=== PATIENT | female | born 1990 | race Caucasian/White ===

== ENCOUNTER 2016-12-01 19:30 | Emergency (ER) | payer BC ==
--- NOTE | 2016-12-01 19:52 | ED ---
General Adult HPI - General Chief complaint: Eye Problems Stated complaint: Eye Problems Time Seen by Provider: 12/01/16 19:44 Source: patient, RN notes reviewed Mode of arrival: ambulatory Limitations: no limitations - History of Present Illness Initial comments: 26-year-old female presented for left eye irritation. Patient states that going on for the past 2 days. 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 She states that there is been some clear drainage from her left eye as well. It is itchy. She denies any significant eye pain. She denies any visual changes. She denies any fevers or chills. She denies a headache. - Related Data Previous Rx's Medication Instructions Recorded Amoxicillin 500 mg PO Q8H 10 Days 08/03/15 Allergies Allergy/AdvReac Type Severity Reaction Status Date / Time No Known Allergies Allergy Verified 12/01/16 19:38 Review of Systems ROS Statement: Those systems with pertinent positive or pertinent negative responses have been documented in the HPI. ROS Other: All systems not noted in ROS Statement are negative. Past Medical History Past Medical History: No Reported History History of Any Multi-Drug Resistant Organisms: None Reported Past Surgical History: No Surgical Hx Reported Past Psychological History: No Psychological Hx Reported Smoking Status: Never smoker Past Alcohol Use History: None Reported Past Drug Use History: None Reported General Exam - General Exam Comments Initial Comments: General: Awake and Alert. No acute distress. Does not appear acutely ill. Eyes: BRENNA, EOM intact. No nystagmus. No scleral icterus. Left eye with conjunctivitis with clear drainage. Right eye conjunctiva appears normal. HENT: Atraumatic, normocephalic. Mucous membranes moist. Trachea midline. Neck: The neck is supple, there is no tenderness or JVD. Cardiovascular: Regular rate and rhythm. Distal pulses intact. Respiratory: No wheezing. No respiratory distress. No tachypnea. Gastrointestinal: No distention. Obese. Musculoskeletal: No tenderness. Normal ROM. No gross deformity. No strength deficits. Neurological: A&Ox3. CN II-XII grossly intact, There are no obvious motor or sensory deficits. Coordination appears grossly intact. Speech is normal. Skin: Skin is warm and dry and no rashes or lesions are noted. Psychiatric: Cooperative, appropriate mood & affect, normal judgment. Limitations: no limitations Course Vital Signs 12/01/16 19:36 Temperature 98.2 F Pulse Rate 94 Respiratory 16 Rate Blood Pressure 140/61 O2 Sat by Pulse 97 Oximetry Medical Decision Making - Medical Decision Making 26-year-old female presented for left eye conjunctivitis. There does not appear to be any other concerning neurological symptoms at this time. Vision is intact. Patient is given dose of Polytrim in the ED and bottle to go home with. Discussed using these 2 drops in both eyes 4 times per day for the next 5 days. Discussed follow-up with PCP. Discussed concerning signs symptoms requiring return to ED. Patient is otherwise stable for discharge. Patient is agreeable with plan and discharge home. Disposition Clinical Impression: Left conjunctivitis Disposition: HOME SELF-CARE Condition: Stable Instructions: Conjunctivitis (ED) Additional Instructions: Please us eyedrops 2 drops in both eyes 4x per day for 5 days. Wash your hands and pillow cases frequently to help not spread the infection. Time of Disposition: 19:52
[2016-12-01] MEDS ORDERED: POLYMYXIN B-TRIMETHOPRIM (10,000-1) OPHTH DROPS 10 ML BTL BOTH EYES SCH (20:00)
[2016-12-01 20:11] VITALS: BP 129/71; PULSE 77; RESP 18; TEMP 97
== END 2016-12-01 20:10 | disposition home or self-care (01) ==
LOC: EC 19:30
DX: H10.9 Unspecified conjunctivitis (principal)
CPT/HCPCS: 99283

== ENCOUNTER 2022-06-08 14:01 | Emergency (ER) | payer BC, OTHER ==
[2022-06-08 16:12] LABS: Basophils % (A) 0 %; Eosinophils # (A) 0.1 k/uL (0-0.7); Eosinophils % (A) 1 %; HCT 41.9 % (34.0-46.0); Lymphocytes # (A) 2.6 k/uL (1.0-4.8); Lymphocytes % (A) 23 %; MCH 30.2 pg (25.0-35.0); MCHC 33.4 g/dL (31.0-37.0); MCV 90.4 fL (80.0-100.0); Mean Platelet Volume 7.1; Monocytes # (A) 0.4 k/uL (0-1.0); Monocytes % (A) 4 %; Neutrophils % (A) 71 %; Platelet Count 381 k/uL (150-450); RBC 4.63 m/uL (3.80-5.40); RDW 12.9 % (11.5-15.5); WBC 11.3 k/uL (3.8-10.6)
--- NOTE | 2022-06-08 16:16 | ED ---
Female Urogenital HPI - General Chief complaint: Vaginal Bleeding Stated complaint: Vaginal bleeding-10 weeks preg Time Seen by Provider: 06/08/22 15:19 Source: patient Mode of arrival: ambulatory Limitations: no limitations - History of Present Illness Initial comments: Patient is a 31-year-old female presents the emergency room after having vaginal bleeding earlier this morning and trace blood on toilet paper after going to the bathroom later in the afternoon. She denies any abdominal cramping or continued bleeding. This is her first and per her last menstrual cycle she should be approximately 10-11 weeks. She reports that she is diabetic and did stop taking her diabetic medications she was not sure if there were safe her but did start taking a gummy vitamin. This is her first ever she has never been before or had previous miscarriages. She does have 1 adopted daughter. She reports that she received a call today to establish with [facility] but has not seen anyone at that practice yet. She denies any other significant past medical history besides her diabetes. She does not monitor her blood sugars at home and is unsure of what her blood sugars could possibly be at this time. She denies any other complaints or concerns at this time. - Related Data Home Medications Medication Instructions Recorded Confirmed Ibuprofen [Motrin] 400 mg PO Q6HR PRN 12/01/16 12/01/16 Previous Rx's Medication Instructions Recorded Polymyxin B-Trimeth Sulf Ophth 2 drops BOTH EYES QID 5 Days ml 12/01/16 [Polytrim Opthalmic] Fluconazole [Diflucan] 150 mg PO ONCE 2 Days #2 tab 06/08/22 nitrofurantoin macrocrystaL 100 mg PO Q12HR 5 Days #10 cap 06/08/22 [Nitrofurantoin] Allergies Allergy/AdvReac Type Severity Reaction Status Date / Time No Known Allergies Allergy Verified 06/08/22 14:05 Review of Systems ROS Statement: Those systems with pertinent positive or pertinent negative responses have been documented in the HPI. ROS Other: All systems not noted in ROS Statement are negative. Past Medical History Past Medical History: Diabetes Mellitus History of Any Multi-Drug Resistant Organisms: None Reported Past Surgical History: No Surgical Hx Reported Past Psychological History: No Psychological Hx Reported Smoking Status: Never smoker Past Alcohol Use History: None Reported Past Drug Use History: None Reported General Exam Limitations: no limitations General appearance: alert, in no apparent distress Head exam: Present: atraumatic, normocephalic, normal inspection Eye exam: Present: normal appearance, PERRL, EOMI. Absent: scleral icterus, conjunctival injection, periorbital swelling ENT exam: Present: normal exam, mucous membranes moist Neck exam: Present: normal inspection. Absent: tenderness, meningismus, lymphadenopathy Respiratory exam: Present: normal lung sounds bilaterally. Absent: respiratory distress, wheezes, rales, rhonchi, stridor Cardiovascular Exam: Present: regular rate, normal rhythm, normal heart sounds. Absent: systolic murmur, diastolic murmur, rubs, gallop, clicks GI/Abdominal exam: Present: soft, normal bowel sounds. Absent: distended, tenderness, guarding, rebound, rigid Extremities exam: Present: normal inspection, full ROM, normal capillary refill. Absent: tenderness, pedal edema, joint swelling, calf tenderness Back exam: Present: normal inspection Neurological exam: Present: alert, oriented X3, CN II-XII intact Psychiatric exam: Present: normal affect, normal mood Skin exam: Present: warm, dry, intact, normal color. Absent: rash Course Vital Signs 06/08/22 14:03 Temperature 97.7 F Pulse Rate 91 Respiratory 20 Rate Blood Pressure 120/81 O2 Sat by Pulse 97 Oximetry Medical Decision Making - Medical Decision Making Patient 1 with trace amount of spotting with no cramping today. Will check CBC, BMP, urinalysis, serum hcg level, Rh factor and ultrasound less than 14 weeks. CBC with mild leukocytosis noted and positive urinalysis for bacteria and yeast. hcg level at 10,000; BMP stable. Rh +. ultrasound shows likely demise with no heart sounds and measurements of 8 weeks instead of expected tender 11 and no yolk sac. Will treat both urinary tract infection and yeast infection. Advised to keep upcoming appointment with [facility]. Discussed typical course of miscarriage and when to return to the emergency room including fever, chills, excessive excessive vaginal, purulent drainage or foul vaginal odor, abdominal pain. Case discussed with Dr. Vila - Lab Data Result diagrams: 06/08/22 15:50 06/08/22 15:50 Lab Results 06/08/22 06/08/22 06/08/22 Range/Units 15:50 15:50 15:50 WBC 11.3 H (3.8-10.6) k/uL RBC 4.63 (3.80-5.40) m/uL Hgb 14.0 (11.4-16.0) gm/dL Hct 41.9 (34.0-46.0) % MCV 90.4 (80.0-100.0) fL MCH 30.2 (25.0-35.0) pg MCHC 33.4 (31.0-37.0) g/dL RDW 12.9 (11.5-15.5) % Plt Count 381 (150-450) k/uL MPV 7.1 Neutrophils % 71 % Lymphocytes % 23 % Monocytes % 4 % Eosinophils % 1 % Basophils % 0 % Neutrophils # 8.0 H (1.3-7.7) k/uL Lymphocytes # 2.6 (1.0-4.8) k/uL Monocytes # 0.4 (0-1.0) k/uL Eosinophils # 0.1 (0-0.7) k/uL Basophils # 0.0 (0-0.2) k/uL Sodium 136 L (137-145) mmol/L Potassium 4.5 (3.5-5.1) mmol/L Chloride 101 (98-107) mmol/L Carbon Dioxide 24 (22-30) mmol/L Anion Gap 11 mmol/L BUN 12 (7-17) mg/dL Creatinine 0.44 L (0.52-1.04) mg/dL Est GFR (CKD-EPI)AfAm >90 (>60 ml/min/1.73 sqM) Est GFR (CKD-EPI)NonAf >90 (>60 ml/min/1.73 sqM) Glucose 165 H (74-99) mg/dL Calcium 9.4 (8.4-10.2) mg/dL HCG, Quant 58963.9 mIU/mL Urine Color Yellow Urine Appearance Cloudy H (Clear) Urine pH 5.0 (5.0-8.0) Ur Specific [place] 1.026 (1.001-1.035) Urine Protein 1+ H (Negative) Urine Glucose (UA) Trace H (Negative) Urine Ketones 1+ H (Negative) Urine Blood Small H (Negative) Urine Nitrite Negative (Negative) Urine Bilirubin Negative (Negative) Urine Urobilinogen <2.0 (<2.0) mg/dL Ur Leukocyte Esterase Large H (Negative) Urine RBC 36 H (0-5) /hpf Urine WBC 130 H (0-5) /hpf Ur Squamous Epith Cells 25 H (0-4) /hpf Urine Bacteria Moderate H (None) /hpf Urine Mucus Many H (None) /hpf Urine Yeast (Budding) Occasional H (None) /hpf Blood Type Blood Type Recheck Bld Type Recheck Status 06/08/22 Range/Units 15:50 WBC (3.8-10.6) k/uL RBC (3.80-5.40) m/uL Hgb (11.4-16.0) gm/dL Hct (34.0-46.0) % MCV (80.0-100.0) fL MCH (25.0-35.0) pg MCHC (31.0-37.0) g/dL RDW (11.5-15.5) % Plt Count (150-450) k/uL MPV Neutrophils % % Lymphocytes % % Monocytes % % Eosinophils % % Basophils % % Neutrophils # (1.3-7.7) k/uL Lymphocytes # (1.0-4.8) k/uL Monocytes # (0-1.0) k/uL Eosinophils # (0-0.7) k/uL Basophils # (0-0.2) k/uL Sodium (137-145) mmol/L Potassium (3.5-5.1) mmol/L Chloride (98-107) mmol/L Carbon Dioxide (22-30) mmol/L Anion Gap mmol/L BUN (7-17) mg/dL Creatinine (0.52-1.04) mg/dL Est GFR (CKD-EPI)AfAm (>60 ml/min/1.73 sqM) Est GFR (CKD-EPI)NonAf (>60 ml/min/1.73 sqM) Glucose (74-99) mg/dL Calcium (8.4-10.2) mg/dL HCG, Quant mIU/mL Urine Color Urine Appearance (Clear) Urine pH (5.0-8.0) Ur Specific [place] (1.001-1.035) Urine Protein (Negative) Urine Glucose (UA) (Negative) Urine Ketones (Negative) Urine Blood (Negative) Urine Nitrite (Negative) Urine Bilirubin (Negative) Urine Urobilinogen (<2.0) mg/dL Ur Leukocyte Esterase (Negative) Urine RBC (0-5) /hpf Urine WBC (0-5) /hpf Ur Squamous Epith Cells (0-4) /hpf Urine Bacteria (None) /hpf Urine Mucus (None) /hpf Urine Yeast (Budding) (None) /hpf Blood Type O Positive Blood Type Recheck No Previous Record Bld Type Recheck Status [facility] ONLY Disposition Clinical Impression: Incomplete , UTI (urinary tract infection) Disposition: HOME SELF-CARE Condition: Stable Instructions (If sedation given, give patient instructions): Miscarriage (ED) Additional Instructions: Please complete your antibiotic therapy for urinary tract infection. Please return to the hospital in 48 hours for repeat blood tests. Please follow-up with [facility] in regards to likely miscarriage. Please follow-up with [facility] [employer] [facility] in regards to treatment of slight amount of yeast found in urine. Prescription for Diflucan given please hold until cleared by just [facility] ENGINE[facility] to start. Please resume your metformin for your diabetes. Please follow-up with your primary care provider. If any excessive vaginal bleeding, purulent or foul vaginal discharge, abdominal pain, nausea vomiting fevers or chills please return to the emergency room. Please return to the Emergency Department if symptoms worsen or any other concerns. Prescriptions: Fluconazole [Diflucan] 150 mg PO ONCE 2 Days #2 tab nitrofurantoin macrocrystaL [Nitrofurantoin] 100 mg PO Q12HR 5 Days #10 cap Is patient prescribed a controlled substance at d/c from ED?: No Referrals: Michel Brennan DO [Primary Care Provider] - 1-2 days Melinda Bryant MD [STAFF PHYSICIAN] - 1-2 days Time of Disposition: 17:18
[2022-06-08 16:18] LABS: African American GFR (CKD) >90 (>60 ml/min/1.73 sqM); Anion Gap 11 mmol/L; Blood Urea Nitrogen 12 mg/dL (7-17); Calcium 9.4 mg/dL (8.4-10.2); Carbon Dioxide 24 mmol/L (22-30); Chloride 101 mmol/L (98-107); Glucose 165 mg/dL (74-99); Non-African American GFR(CKD) >90 (>60 ml/min/1.73 sqM); Potassium 4.5 mmol/L (3.5-5.1); Sodium 136 mmol/L (137-145)
--- NOTE | 2022-06-08 16:32 | US ---
EXAMINATION TYPE: Transabdominal DATE OF EXAM: 06/08/2022 4:12 PM COMPARISON: NONE CLINICAL HISTORY: pain. bleeding with . EXAM PERFORMED: Transabdominal (TA) EXAM MEASUREMENTS: GESTATIONAL AGE / DATING Physician Established: Not yet established Dates by LMP: 03/22/2022 (11 weeks/1 days) EDC: 12/27/2022 Dates by First Scan: No previous this is first scan ) Dates by Current Scan for: ( 8 weeks/5 days) demise MATERNAL ANATOMY Uterus: 11.0 x 6.5 x 7.9 cm Right Ovary: not visualized Left Ovary: 3.4 x 1.7 x 2.9 cm Post CDS / Adnexa: wnl Presence of free fluid: none GESTATION / SURVEY CRL: 2.1 cm (8 weeks/5 days) MSD: 3.4 cm (8 weeks/4 days) Yolk Sac (normal less than 6mm): not seen Date of LMP: 03/22/2022 Beta HcG (if available): not available demise, no heart tones detected. IMPRESSION: 1. No heart tones noted which should be present and an 8 week 5 day gestation based on the curyung n-rump length. Predicted gestational age based on last menstrual period would be 11 weeks 1 day gesta tion which is a discrepancy. Intrauterine demise likely present.
[2022-06-08 16:34] LABS: HCG,Quantitative Serum 10908.9 mIU/mL
[2022-06-08 16:39] LABS: Appearance,Urine Cloudy (Clear); Bacteria,Urine Moderate /hpf; Bilirubin,Urine Negative (Negative); Blood,Urine Small (Negative); Budding Yeast,Urine Occasional /hpf; Color,Urine Yellow; Glucose,Urine (UA) Trace (Negative); Ketones,Urine 1+ (Negative); Leukocyte Esterase,Urine Large (Negative); Mucus,Urine Many /hpf; Nitrite,Urine Negative (Negative); Protein,Urine 1+ (Negative); RBC,Urine 36 /hpf (0-5); Specific Gravity,Urine 1.026 (1.001-1.035); Squamous Epithelial Cell,Urine 25 /hpf (0-4); Urobilinogen,Urine <2.0 mg/dL (<2.0); WBC,Urine 130 /hpf (0-5)
[2022-06-08 17:34] VITALS: BP 114/73; PULSE 84; RESP 18; TEMP 98.7
== END 2022-06-08 17:34 | disposition home or self-care (01) ==
LOC: EC 14:01
DX: O03.4 Incomplete spontaneous abortion without complication (principal); E11.9 Type 2 diabetes mellitus without complications; N39.0 Urinary tract infection, site not specified; Z3A.11 11 weeks gestation of pregnancy
CPT/HCPCS: 36415; 76801; 80048; 81001; 84702; 85025; 86900; 86901; 87077; 87086; 87186

== ENCOUNTER → 2022-06-13 | Outpatient (CLI) | payer BC, OTHER ==
[2022-06-13 19:09] LABS: Basophils # (A) 0.03 X 10*3/uL (0.00-0.10); Basophils % (A) 0.3 %; Eosinophils # (A) 0.09 X 10*3/uL (0.04-0.35); Eosinophils % (A) 0.8 %; HCT 42.3 % (37.2-46.3); HGB 13.3 g/dL (12.0-15.0); Immature Grans, Automated 0.3 %; Lymphocytes # (A) 2.61 X 10*3/uL (0.90-5.00); Lymphocytes % (A) 22.6 %; MCH 28.4 pg (27.0-32.0); MCHC 31.4 g/dL (32.0-37.0); MCV 90.4 fL (80.0-97.0); Monocytes # (A) 0.65 X 10*3/uL (0.20-1.00); Monocytes % (A) 5.6 %; NRBC Per 100 WBC 0 /100 WBCS (0.0-0.0); Neutrophils # (A) 8.13 X 10*3/uL (1.80-7.70); Neutrophils % (A) 70.4 %; Platelet Count 398 X 10*3/uL (140-440); RBC 4.68 X 10*6/uL (4.10-5.20); RDW 12.5 % (11.5-14.5); WBC 11.54 X 10*3/uL (4.50-10.00)
== END | disposition home or self-care (01) ==
LOC: LABPAT 11:03
PROVIDERS: ATTEND Obstetrics & Gynecology
DX: Z01.812 Encounter for preprocedural laboratory examination (principal); O02.1 Missed abortion
CPT/HCPCS: 36415; 85025

== ENCOUNTER → 2022-10-10 | Outpatient (CLI) | payer BC, OTHER ==
[2022-10-10 14:26] LABS: Basophils # (A) 0.03 X 10*3/uL (0.00-0.10); Basophils % (A) 0.3 %; Eosinophils # (A) 0.07 X 10*3/uL (0.04-0.35); Eosinophils % (A) 0.7 %; HGB 13.4 g/dL (12.0-15.0); Immature Grans, Automated 0.4 %; Lymphocytes # (A) 2.91 X 10*3/uL (0.90-5.00); Lymphocytes % (A) 27.2 %; MCHC 31.9 g/dL (32.0-37.0); MCV 90.9 fL (80.0-97.0); Mean Platelet Volume 10.3 fL (9.5-12.2); Monocytes # (A) 0.78 X 10*3/uL (0.20-1.00); Monocytes % (A) 7.3 %; NRBC Per 100 WBC 0 /100 WBCS (0.0-0.0); Neutrophils # (A) 6.85 X 10*3/uL (1.80-7.70); Neutrophils % (A) 64.1 %; Platelet Count 394 X 10*3/uL (140-440); RBC 4.62 X 10*6/uL (4.10-5.20); RDW 12.4 % (11.5-14.5); WBC 10.68 X 10*3/uL (4.50-10.00)
== END | disposition home or self-care (01) ==
LOC: LABPAT 09:47
PROVIDERS: ATTEND Obstetrics & Gynecology
DX: Z01.812 Encounter for preprocedural laboratory examination (principal); O02.1 Missed abortion; Z3A.00 Weeks of gestation of pregnancy not specified
CPT/HCPCS: 85025; 86850; 86900; 86901

== ENCOUNTER 2022-10-12 13:28 | Day surgery (SDC) | payer BC, OTHER ==
[2022-10-10 14:28] VITALS: BMI 31.3
[~2022-10-12 13:28] MED LIST: Pre Op ABX Message 1 EACH MISC MISCELLANE ONE
[2022-10-12] MEDS ORDERED: DEXAMETHASONE SOD PHOSPHATE 4 MG/ML 1 ML VIAL IV ONE (13:38)
[2022-10-12] MEDS ORDERED: MIDAZOLAM 2 MG/2 ML VIAL IV PRN (13:38)
[2022-10-12] MEDS ORDERED: HYDROmorphone 0.5 MG/0.5 ML SYRINGE IVP PRN (13:38)
[2022-10-12] MEDS ORDERED: SCOPOLAMINE 1 MG/72 HR PATCH TRANSDERM ONE (13:38)
[2022-10-12] MEDS ORDERED: LACTATED RINGERS 1,000 ML IV SCH ×2 (13:38→15:15)
[2022-10-12] MEDS ORDERED: ONDANSETRON 4 MG/2 ML VIAL IVP ONE (13:38)
[2022-10-12 14:02] LABS: Glucose,Whole Blood 126 mg/dL (70-110)
[2022-10-12] MEDS ORDERED: MIDAZOLAM 2 MG/2 ML VIAL ONE (14:33)
[2022-10-12] MEDS ORDERED: fentaNYL (PF) 50 MCG/ML 2 ML AMP ONE (14:33)
[2022-10-12] MEDS ORDERED: LIDOCAINE 2% INJ 20 MG/ML (2 ML VIAL) ONE (14:33)
[2022-10-12] MEDS ORDERED: PROPOFOL 10 MG/ML 20 ML VIAL IV ONE (14:33)
[2022-10-12] MEDS ORDERED: SUCCINYLCHOLINE CHLORIDE 200 MG/10 ML VIAL IV ONE (14:33)
[2022-10-12] MEDS ORDERED: HYDROmorphone (PF) 1 MG/ML ONE (14:33)
[2022-10-12] MEDS ORDERED: Acetaminophen-Codeine 300-30mg TAB PO PRN ×2 (15:03)
[2022-10-12] MEDS ORDERED: ONDANSETRON 4 MG/2 ML VIAL IVP PRN (15:03)
[2022-10-12] MEDS ORDERED: diphenhydrAMINE 50 MG/ML 1 ML VIAL IVP PRN (15:03)
[2022-10-12] MEDS ORDERED: SIMETHICONE 80 MG CHEWABLE PO PRN (15:03)
[2022-10-12] MEDS ORDERED: IBUPROFEN 600 MG TAB PO PRN (15:03)
[2022-10-12] MEDS ORDERED: KETOROLAC 15 MG/ML 1 ML VIAL IVP PRN (15:03)
[2022-10-12] MEDS ORDERED: METOCLOPRAMIDE 5 MG/ML 2 ML VIAL IVP PRN (15:03)
--- NOTE | 2022-10-12 15:08 | P.OP ---
Date of Procedure: 10/12/22 Preoperative Diagnosis: #1. 6+ week missed Postoperative Diagnosis: Same Procedure(s) Performed: #1. dilation and aspiration curettage Anesthesia: DARIA Surgeon: Pedro Whelan Estimated Blood Loss (ml): 100 IV fluids (ml): 400 Urine output (ml): 10 Pathology: other (Uterine contents) Condition: stable Disposition: PACU Operative Findings: Preoperative pelvic examination demonstrated a roughly 6-7 week slightly antever domo mobile normal shaped uterus with normal adnexa bilaterally. Intraoperatively, the uterus sounded to 10 cm. A #8 curved aspiration curet was utilized and tissue seen passing through the tubing on the first pass. Using a sharp curette the typical gritty texture was encountered and no further tissue produced. Description of Procedure: The patient was prepped and draped in usual fashion after general endotracheal anesthesia was administered by the anesthesiologist. The bladder was draining approximately 10 mL of clear leticia urine. A weighted speculum was placed and the anterior lip of the cervix was grasped with a single-tooth tenaculum. Uterus sounded to 10 cm as noted above. Serial dilation was carried out to admit a #8 curved aspiration curet which was placed to the fundus and suction applied. After adequate suction had been built, thorough and circumferential aspiration curettage was carried out from the fundus of the uterus to the cervix with tissue clearly seen passing through the tubing on the first pass. The second pass failed to deliver any obvious tissue and the suction curet was set aside in favor of a medium sharp curette. Thorough and circumferential sharp curettage was carried out from the fundus to the cervix with no tissue noted in the typical gritty texture was encountered throughout. One last pass was made with the aspiration curet which failed to produce any further tissue. All instrumentation was then removed. There was no significant ongoing bleeding from either the cervix or the tenaculum site. Estimated blood loss for the case is approximately 100 mL. All sponge, instrument, needle counts were correct. The patient tolerated the procedure well and proceeded to the recovery room in stable condition.
[2022-10-12 15:18] VITALS: TEMP 97
[2022-10-12 15:55] VITALS: RESP 15
[2022-10-12 16:08] VITALS: BP 107/73; PULSE 74
== END 2022-10-12 16:22 | disposition home or self-care (01) ==
LOC: OR 13:28
PROVIDERS: ATTEND Obstetrics & Gynecology
DX: O02.1 Missed abortion (principal); E11.9 Type 2 diabetes mellitus without complications; Z79.84 Long term (current) use of oral hypoglycemic drugs; Z79.82 Long term (current) use of aspirin; Z79.899 Other long term (current) drug therapy
CPT/HCPCS: 88305; 59820; J2250; J0330; J1100; J2405; J3010; J1170; J2704; J2001

== ENCOUNTER 2024-07-12 11:55 | Emergency (ER) | payer OTHER ==
[2024-07-12 12:02] LABS: Glucose,Whole Blood 309 mg/dL (70-110)
--- NOTE | 2024-07-12 12:28 | ED ---
Dizziness HPI - General Source: patient, RN notes reviewed Mode of arrival: ambulatory Limitations: no limitations - History of Present Illness MD Complaint: dizziness <Susan Jauregui - Last Filed: 07/12/24 12:26> <Ulises Oleary - Last Filed: 07/13/24 07:14> - General Chief Complaint: Dizziness Stated Complaint: Dizziness,Headache Time Seen by Provider: 07/12/24 12:20 - History of Present Illness Initial Comments: Quick Note: This is a 34-year-old female who presents to the emergency department for headaches and dizziness. States that she woke up this way yesterday and this morning. Blood sugar noted to be elevated in triage. Patient has a history of type 2 diabetes. Does not take insulin. Does not check her sugar at home. Denies a history of DKA. Denies any chest pain or shortness of breath. (Susan Jauregui) Agree with above. Patient does admit to some dietary indiscretions related to diabetes diet. (Ulises Oleary) - Related Data Home Medications Medication Instructions Recorded Confirmed metFORMIN HCL 1,000 mg PO BID 06/14/22 10/10/22 Acetaminophen Tab [Tylenol Tab] 500 mg PO Q6H PRN 10/10/22 10/10/22 Empagliflozin [Jardiance] 10 mg PO DAILY 10/10/22 10/10/22 Previous Rx's Medication Instructions Recorded Benzocaine/Menthol [Cepacol Sore 1 each MM Q4H PRN #24 lozenge 12/06/22 Throat Lozenge] Ibuprofen [Motrin] 800 mg PO Q8HR PRN #30 tab 12/06/22 Allergies Allergy/AdvReac Type Severity Reaction Status Date / Time No Known Allergies Allergy Verified 07/12/24 12:01 Review of Systems ROS Other: All systems not noted in ROS Statement are negative. <Susan Jauregui - Last Filed: 07/12/24 12:26> ROS Other: All systems not noted in ROS Statement are negative. Constitutional: Denies: fever, chills, weakness Respiratory: Denies: cough, dyspnea Cardiovascular: Denies: chest pain, palpitations, edema Gastrointestinal: Denies: abdominal pain, vomiting, diarrhea Genitourinary: Denies: dysuria, hematuria Musculoskeletal: Denies: back pain Skin: Denies: rash Neurological: Denies: headache, weakness, numbness <AnirudhUlises - Last Filed: 07/13/24 07:14> ROS Statement: Those systems with pertinent positive or pertinent negative responses have been documented in the HPI. Past Medical History Past Medical History: Diabetes Mellitus History of Any Multi-Drug Resistant Organisms: None Reported Past Surgical History: No Surgical Hx Reported Additional Past Surgical History / Comment(s): D&C Past Anesthesia/Blood Transfusion Reactions: No Reported Reaction Past Psychological History: No Psychological Hx Reported Smoking Status: Never smoker Past Alcohol Use History: None Reported Past Drug Use History: None Reported - Past Family History Mother Family Medical History: No Reported History <Susan Jauregui - Last Filed: 07/12/24 12:26> General Exam Limitations: no limitations <Susan Jauregui - Last Filed: 07/12/24 12:26> General appearance: alert, in no apparent distress Head exam: Present: atraumatic, normocephalic Eye exam: Present: normal appearance. Absent: scleral icterus, conjunctival injection Neck exam: Present: normal inspection Respiratory exam: Present: normal lung sounds bilaterally. Absent: respiratory distress, wheezes, rales, rhonchi, stridor, accessory muscle use Cardiovascular Exam: Present: regular rate, normal rhythm, normal heart sounds. Absent: systolic murmur, diastolic murmur, rubs, gallop GI/Abdominal exam: Present: soft. Absent: distended, tenderness, guarding, rebound, rigid, mass Extremities exam: Present: normal inspection, normal capillary refill. Absent: pedal edema, calf tenderness Back exam: Present: normal inspection. Absent: CVA tenderness (R), CVA tenderness (L) Neurological exam: Present: alert Skin exam: Present: warm, dry, intact, normal color. Absent: rash <Ulises Oleary - Last Filed: 07/13/24 07:14> - General Exam Comments Initial Comments: Visual Physical Exam Vital signs reviewed General: Well-appearing, nontoxic, no acute distress. Head: Normocephalic, atraumatic Eyes: PERRLA, EOMI ENT: Airway patent Chest: Nonlabored breathing Skin: No visual rash, normal skin tone Neuro: Alert and oriented 3 Musculoskeletal: No gross abnormalities (Susan Jauregui) Course Vital Signs 07/12/24 07/12/24 07/12/24 11:58 17:03 17:25 Temperature 97.9 F 98.2 F Pulse Rate 96 87 85 Respiratory 16 18 16 Rate Blood Pressure 114/65 115/74 117/74 O2 Sat by Pulse 96 100 100 Oximetry EKG Findings - EKG Results: EKG: interpreted by ERMD, sinus rhythm (Rate 82 bpm), normal axis, normal QRS, normal ST/T - PR, Pacemaker, Normal: Normal tracing: normal tracing <Ulises Oleary - Last Filed: 07/13/24 07:14> Medical Decision Making <Susan Jauregui - Last Filed: 07/12/24 12:26> - Lab Data Result diagrams: 07/12/24 12:25 07/12/24 12:25 <Ulises Oleary - Last Filed: 07/13/24 07:14> - Medical Decision Making I performed the QuickNote portion of this chart. Signed Susan Jauregui PA-C. (Susan Jauregui) Was pt. sent in by a medical professional or institution ([facility], [employer], urgent care, hospital, or longterm...) When possible be specific @ -[No] Did you speak to anyone other than the patient for history (EMS, parent, family, police, friend...)? What history was obtained from this source @ -[No] Did you review nursing and triage notes (agree or disagree)? Why? @ -[I reviewed and agree with nursing and triage notes] Were old charts reviewed (outside hosp., previous admission, EMS record, old EKG, old radiological studies, urgent care reports/EKG's, longterm records)? Report findings @ -[No old charts were reviewed] Differential Diagnosis (chest pain, altered mental status, abdominal pain women, abdominal pain men, vaginal bleeding, weakness, fever, dyspnea, syncope, [place], dizziness, GI bleed, back pain, seizure, CVA, palpatations, mental health, musculoskeletal)? @ -[Differential Dizziness: Benign paroxysmal positional Vertigo, Meniere's disease, otitis media, acoustic neuroma, vertebrobasilar insufficiency, cerebellar stroke, encephalitis, hypovolemic, arrhythmia, coronary artery syndrome, anemia, this is not meant to be an all-inclusive list EKG interpreted by me (3pts min.). @ -[As above] X-rays interpreted by me (1pt min.). @ -[None done] CT interpreted by me (1pt min.). @ -[None done] U/S interpreted by me (1pt. min.). @ -[None done] What testing was considered but not performed or refused? (CT, X-rays, U/S, labs)? Why? @ -[None] What meds were considered but not given or refused? Why? @ -[None] Did you discuss the management of the patient with other professionals (professionals i.e. DrGaston, PA, HYDRAMATIC MECHANIC, lab, RT, psych nurse, home health care social worker, reduction furnace operator, teacher, electronic warfare officer, counter caser)? Give summary @ -[No] Was smoking cessation discussed for >3mins.? @ -[No] Was critical care preformed (if so, how long)? @ -[No] Were there social determinants of health that impacted care today? How? (Homelessness, low income, unemployed, alcoholism, drug addiction, transportation, low edu. Level, literacy, decrease access to med. care, group home, rehab)? @ -[No] Was there de-escalation of care discussed even if they declined (Discuss DNR or withdrawal of care, Hospice)? DNR status @ -[No] What co-morbidities impacted this encounter? (DM, HTN, Smoking, COPD, CAD, Cancer, CVA, ARF, Chemo, Hep., AIDS, mental health diagnosis, sleep apnea, morbid obesity)? @ -[None] Was patient admitted / discharged? Hospital course, mention meds given and route , prescriptions, significant lab abnormalities, going to OR and other pertinent info. @ -[Patient is a 34-year-old woman here for nonspecific symptoms and found to have moderate hyperglycemia. Patient is given fluid insulin and did have improvement. Discussed further follow-up with her physician as well as return parameters Undiagnosed new problem with uncertain prognosis? @ -[No] Drug Therapy requiring intensive monitoring for toxicity (Heparin, Nitro, Insulin, Cardizem)? @ -[No] Were any procedures done? @ -[No] Diagnosis/symptom? @ -[Acute dizziness Acute hyperglycemia and diabetic patient Acute, or Chronic, or Acute on Chronic? @ -[Acute Uncomplicated (without systemic symptoms) or Complicated (systemic symptoms)? @ -[Uncomplicated yes discussed risk of Side effects of treatment? @ -[No] Exacerbation, Progression, or Severe Exacerbation? @ -[No] Poses a threat to life or bodily function? How? (Chest pain, USA, PR, pneumonia, PE, COPD, DKA, ARF, appy, cholecystitis, CVA, Diverticulitis, Homicidal, Suicidal, threat to staff... and all critical care pts) @ -Yes, discussed the risk of long-term uncontrolled hyperglycemia and patient to have close follow-up. (Ulises Oleary) - Lab Data Lab Results 07/12/24 07/12/24 07/12/24 Range/Units 12:01 12:25 12:25 WBC 11.5 H (3.8-10.6) k/uL RBC 5.03 (3.80-5.40) m/uL Hgb 14.9 (11.4-16.0) gm/dL Hct 45.8 (34.0-46.0) % MCV 91.0 (80.0-100.0) fL MCH 29.7 (25.0-35.0) pg MCHC 32.6 (31.0-37.0) g/dL RDW 12.3 (11.5-15.5) % Plt Count 360 (150-450) k/uL MPV 7.6 Neutrophils % 68 % Lymphocytes % 24 % Monocytes % 5 % Eosinophils % 1 % Basophils % 0 % Neutrophils # 7.8 H (1.3-7.7) k/uL Lymphocytes # 2.8 (1.0-4.8) k/uL Monocytes # 0.6 (0-1.0) k/uL Eosinophils # 0.1 (0-0.7) k/uL Basophils # 0.0 (0-0.2) k/uL Sodium 134 L (137-145) mmol/L Potassium 4.4 (3.5-5.1) mmol/L Chloride 100 (98-107) mmol/L Carbon Dioxide 23 (22-30) mmol/L Anion Gap 11 mmol/L BUN 20 H (7-17) mg/dL Creatinine 0.77 (0.52-1.04) mg/dL Est GFR (CKD-EPI)AfAm >90 (>60 ml/min/1.73 sqM) Est GFR (CKD-EPI)NonAf >90 (>60 ml/min/1.73 sqM) Glucose 306 H (74-99) mg/dL POC Glucose (mg/dL) 309 H (70-110) mg/dL POC Glu Meat Slicer Danae Floyd Calcium 9.9 (8.4-10.2) mg/dL Phosphorus 3.3 (2.5-4.5) mg/dL Magnesium 1.5 L (1.6-2.3) mg/dL Total Bilirubin 0.8 (0.2-1.3) mg/dL AST 16 (14-36) U/L ALT 16 (4-34) U/L Alkaline Phosphatase 128 H (38-126) U/L Total Protein 7.2 (6.3-8.2) g/dL Albumin 4.2 (3.5-5.0) g/dL Urine Color Urine Appearance (Clear) Urine pH (5.0-8.0) Ur Specific [place] (1.001-1.035) Urine Protein (Negative) Urine Glucose (UA) (Negative) Urine Ketones (Negative) Urine Blood (Negative) Urine Nitrite (Negative) Urine Bilirubin (Negative) Urine Urobilinogen (<2.0) mg/dL Ur Leukocyte Esterase (Negative) Urine RBC (0-5) /hpf Urine WBC (0-5) /hpf Ur Squamous Epith Cells (0-4) /hpf Urine Bacteria (None) /hpf Ur Yeast w Hyphae (None) /hpf Urine Yeast (Budding) (None) /hpf Urine HCG, Qual (Not Detectd) Acetone, Qual Negative (Negative) Influenza Type A (PCR) (Not Detectd) Influenza Type B (PCR) (Not Detectd) RSV (PCR) (Not Detectd) SARS-CoV-2 (PCR) (Not Detectd) 07/12/24 07/12/24 07/12/24 Range/Units 12:25 15:00 15:00 WBC (3.8-10.6) k/uL RBC (3.80-5.40) m/uL Hgb (11.4-16.0) gm/dL Hct (34.0-46.0) % MCV (80.0-100.0) fL MCH (25.0-35.0) pg MCHC (31.0-37.0) g/dL RDW (11.5-15.5) % Plt Count (150-450) k/uL MPV Neutrophils % % Lymphocytes % % Monocytes % % Eosinophils % % Basophils % % Neutrophils # (1.3-7.7) k/uL Lymphocytes # (1.0-4.8) k/uL Monocytes # (0-1.0) k/uL Eosinophils # (0-0.7) k/uL Basophils # (0-0.2) k/uL Sodium (137-145) mmol/L Potassium (3.5-5.1) mmol/L Chloride (98-107) mmol/L Carbon Dioxide (22-30) mmol/L Anion Gap mmol/L BUN (7-17) mg/dL Creatinine (0.52-1.04) mg/dL Est GFR (CKD-EPI)AfAm (>60 ml/min/1.73 sqM) Est GFR (CKD-EPI)NonAf (>60 ml/min/1.73 sqM) Glucose (74-99) mg/dL POC Glucose (mg/dL) (70-110) mg/dL POC Glu Meat Slicer ID Calcium (8.4-10.2) mg/dL Phosphorus (2.5-4.5) mg/dL Magnesium (1.6-2.3) mg/dL Total Bilirubin (0.2-1.3) mg/dL AST (14-36) U/L ALT (4-34) U/L Alkaline Phosphatase (38-126) U/L Total Protein (6.3-8.2) g/dL Albumin (3.5-5.0) g/dL Urine Color Colorless Urine Appearance Clear (Clear) Urine pH 5.0 (5.0-8.0) Ur Specific [place] 1.041 H (1.001-1.035) Urine Protein Negative (Negative) Urine Glucose (UA) 4+ H (Negative) Urine Ketones Negative (Negative) Urine Blood Negative (Negative) Urine Nitrite Negative (Negative) Urine Bilirubin Negative (Negative) Urine Urobilinogen <2.0 (<2.0) mg/dL Ur Leukocyte Esterase Moderate H (Negative) Urine RBC 2 (0-5) /hpf Urine WBC 15 H (0-5) /hpf Ur Squamous Epith Cells 3 (0-4) /hpf Urine Bacteria Rare H (None) /hpf Ur Yeast w Hyphae Rare (None) /hpf Urine Yeast (Budding) Rare H (None) /hpf Urine HCG, Qual Not Detected (Not Detectd) Acetone, Qual (Negative) Influenza Type A (PCR) Not Detected (Not Detectd) Influenza Type B (PCR) Not Detected (Not Detectd) RSV (PCR) Not Detected (Not Detectd) SARS-CoV-2 (PCR) Not Detected (Not Detectd) 07/12/24 Range/Units 16:45 WBC (3.8-10.6) k/uL RBC (3.80-5.40) m/uL Hgb (11.4-16.0) gm/dL Hct (34.0-46.0) % MCV (80.0-100.0) fL MCH (25.0-35.0) pg MCHC (31.0-37.0) g/dL RDW (11.5-15.5) % Plt Count (150-450) k/uL MPV Neutrophils % % Lymphocytes % % Monocytes % % Eosinophils % % Basophils % % Neutrophils # (1.3-7.7) k/uL Lymphocytes # (1.0-4.8) k/uL Monocytes # (0-1.0) k/uL Eosinophils # (0-0.7) k/uL Basophils # (0-0.2) k/uL Sodium (137-145) mmol/L Potassium (3.5-5.1) mmol/L Chloride (98-107) mmol/L Carbon Dioxide (22-30) mmol/L Anion Gap mmol/L BUN (7-17) mg/dL Creatinine (0.52-1.04) mg/dL Est GFR (CKD-EPI)AfAm (>60 ml/min/1.73 sqM) Est GFR (CKD-EPI)NonAf (>60 ml/min/1.73 sqM) Glucose (74-99) mg/dL POC Glucose (mg/dL) 238 H (70-110) mg/dL POC Glu Meat Slicer ID [place] Calcium (8.4-10.2) mg/dL Phosphorus (2.5-4.5) mg/dL Magnesium (1.6-2.3) mg/dL Total Bilirubin (0.2-1.3) mg/dL AST (14-36) U/L ALT (4-34) U/L Alkaline Phosphatase (38-126) U/L Total Protein (6.3-8.2) g/dL Albumin (3.5-5.0) g/dL Urine Color Urine Appearance (Clear) Urine pH (5.0-8.0) Ur Specific [place] (1.001-1.035) Urine Protein (Negative) Urine Glucose (UA) (Negative) Urine Ketones (Negative) Urine Blood (Negative) Urine Nitrite (Negative) Urine Bilirubin (Negative) Urine Urobilinogen (<2.0) mg/dL Ur Leukocyte Esterase (Negative) Urine RBC (0-5) /hpf Urine WBC (0-5) /hpf Ur Squamous Epith Cells (0-4) /hpf Urine Bacteria (None) /hpf Ur Yeast w Hyphae (None) /hpf Urine Yeast (Budding) (None) /hpf Urine HCG, Qual (Not Detectd) Acetone, Qual (Negative) Influenza Type A (PCR) (Not Detectd) Influenza Type B (PCR) (Not Detectd) RSV (PCR) (Not Detectd) SARS-CoV-2 (PCR) (Not Detectd) Disposition <Susan Jauregui - Last Filed: 07/12/24 12:26> Is patient prescribed a controlled substance at d/c from ED?: No <Ulises Oleary - Last Filed: 07/13/24 07:14> Clinical Impression: Hyperglycemia due to type 2 diabetes mellitus Disposition: HOME SELF-CARE Condition: Good Instructions (If sedation given, give patient instructions): Dizziness (ED), Diabetic Hyperglycemia (ED) Referrals: Michel Brennan DO [Primary Care Provider] - 1-2 days
[2024-07-12 13:31] LABS: Basophils % (A) 0 %; Eosinophils # (A) 0.1 k/uL (0-0.7); Eosinophils % (A) 1 %; HCT 45.8 % (34.0-46.0); HGB 14.9 gm/dL (11.4-16.0); Lymphocytes # (A) 2.8 k/uL (1.0-4.8); Lymphocytes % (A) 24 %; MCH 29.7 pg (25.0-35.0); MCHC 32.6 g/dL (31.0-37.0); Mean Platelet Volume 7.6; Monocytes # (A) 0.6 k/uL (0-1.0); Monocytes % (A) 5 %; Neutrophils # (A) 7.8 k/uL (1.3-7.7); Neutrophils % (A) 68 %; Platelet Count 360 k/uL (150-450); RBC 5.03 m/uL (3.80-5.40); RDW 12.3 % (11.5-15.5); WBC 11.5 k/uL (3.8-10.6)
[2024-07-12 13:43] LABS: ALT 16 U/L (4-34); AST 16 U/L (14-36); African American GFR (CKD) >90 (>60 ml/min/1.73 sqM); Albumin 4.2 g/dL (3.5-5.0); Alkaline Phosphatase 128 U/L (38-126); Anion Gap 11 mmol/L; Blood Urea Nitrogen 20 mg/dL (7-17); Calcium 9.9 mg/dL (8.4-10.2); Carbon Dioxide 23 mmol/L (22-30); Chloride 100 mmol/L (98-107); Glucose 306 mg/dL (74-99); Magnesium 1.5 mg/dL (1.6-2.3); Non-African American GFR(CKD) >90 (>60 ml/min/1.73 sqM); Phosphorus 3.3 mg/dL (2.5-4.5); Potassium 4.4 mmol/L (3.5-5.1); Sodium 134 mmol/L (137-145); Total Bilirubin 0.8 mg/dL (0.2-1.3); Total Protein 7.2 g/dL (6.3-8.2)
[2024-07-12] MEDS: SODIUM CHLORIDE 0.9% 2,000 ML IV ONE (15:26)
[2024-07-12] MEDS: INSULIN REGULAR 100 UNIT/ML VIAL (IV) SQ STA (15:42)
[2024-07-12 16:02] LABS: Appearance,Urine Clear (Clear); Bacteria,Urine Rare /hpf; Bilirubin,Urine Negative (Negative); Blood,Urine Negative (Negative); Budding Yeast,Urine Rare /hpf; Color,Urine Colorless; Glucose,Urine (UA) 4+ (Negative); Hyphae Yeast, Urine Rare /hpf; Ketones,Urine Negative (Negative); Leukocyte Esterase,Urine Moderate (Negative); Nitrite,Urine Negative (Negative); Protein,Urine Negative (Negative); RBC,Urine 2 /hpf (0-5); Specific Gravity,Urine 1.041 (1.001-1.035); Squamous Epithelial Cell,Urine 3 /hpf (0-4); Urobilinogen,Urine <2.0 mg/dL (<2.0); WBC,Urine 15 /hpf (0-5)
[2024-07-12 16:46] LABS: Glucose,Whole Blood 238 mg/dL (70-110)
[2024-07-12 17:36] VITALS: BP 117/74; PULSE 85; RESP 16; TEMP 98.2
== END 2024-07-12 17:25 | disposition home or self-care (01) ==
LOC: EC 11:55
CPT/HCPCS: 36415; 80053; 81001; 81025; 82009; 83735; 84100; 85025; 87636; 93005; 96360; 96361; 99284